=== PATIENT | male | born 1970 | race Caucasian/White ===

== ENCOUNTER 2019-07-12 20:49 | Emergency (ER) | payer BC ==
[2019-07-12] MEDS ORDERED: DOXYcycline CAP(*) 100 MG PO ONE (21:18)
--- NOTE | 2019-07-12 21:21 | UC ---
Skin Complaint HPI - HPI Summary HPI Summary: tick in corner of right eye may have been attached for over 24 hours - History of Current Complaint Chief Complaint: UCEye Time Seen by Provider: 07/12/19 21:12 Stated Complaint: TICK CORNER OF RIGHT EYE Hx Obtained From: Patient Onset/Duration: Sudden Onset Timing: Constant Pain Intensity: 4 Pain Scale Used: 0-10 Numeric Location: Discrete - lateral cornor of right eye Aggravating Factor(s): Nothing Alleviating Factor(s): Nothing Associated Signs & Symptoms: Positive: Negative Related History: Insect Bite/Sting - Allergy/Home Medications Allergies/Adverse Reactions: Allergies Allergy/AdvReac Type Severity Reaction Status Date / Time No Known Allergies Allergy Verified 07/12/19 21:02 Home Medications: Home Medications Citalopram Hydrobromide [Citalopram HBr] 20 mg PO DAILY 07/12/19 [History Confirmed 07/12/19] PMH/Surg Hx/FS Hx/Imm Hx Previously Healthy: No - Lyme Psychological History: Anxiety - Surgical History Surgical History: Yes Surgery Procedure, Year, and Place: colon resection; ankle surgeries - Family History Known Family History: Positive: None - Social History Occupation: Employed Full-time Lives: With Family Alcohol Use: Occasionally Substance Use Type: None Smoking Status (MU): Light Every Day Tobacco Smoker Review of Systems All Other Systems Reviewed And Are Negative: Yes Constitutional: Positive: Negative Skin: Positive: Other - tick enbedded lateral corner of right eye Eyes: Positive: Negative ENT: Positive: Negative Respiratory: Positive: Negative Cardiovascular: Positive: Negative Gastrointestinal: Positive: Negative Genitourinary: Positive: Negative Motor: Positive: Negative Neurovascular: Positive: Negative Musculoskeletal: Positive: Negative Neurological: Positive: Negative Psychological: Positive: Negative Is Patient Immunocompromised?: No Physical Exam Triage Information Reviewed: Yes Appearance: Well-Appearing, No Pain Distress, Well-Nourished Vital Signs: Initial Vital Signs Temp 97.8 F 07/12/19 21:02 Pulse 62 07/12/19 21:02 Resp 16 07/12/19 21:02 BP 143/75 07/12/19 21:02 Pulse Ox 98 07/12/19 21:02 Vital Signs Reviewed: Yes Eye Exam: Normal Eyes: Positive: Other: - tick lateral cornor of right eye ENT Exam: Normal ENT: Positive: Normal ENT inspection, Hearing grossly normal. Negative: Trismus , Muffled voice, Hoarse voice Dental Exam: Normal Neck exam: Normal Neck: Positive: Supple, Nontender Respiratory Exam: Normal Respiratory: Positive: Chest non-tender, No respiratory distress, No accessory muscle use Cardiovascular Exam: Normal Cardiovascular: Positive: RRR, Pulses Normal, Brisk Capillary Refill Musculoskeletal Exam: Normal Musculoskeletal: Positive: Strength Intact, ROM Intact, No Edema Neurological Exam: Normal Neurological: Positive: Alert, Muscle Tone Normal Psychological Exam: Normal Skin Exam: Normal Course/Dx - Course Course Of Treatment: tick removed with tick twister intact---discussed options with treating with preventive dose of doxy. patient wishes to treat--will follow bp with pcp and chronic lyme with ID at [facility] 5 days - Diagnoses Provider Diagnosis: Tick bite, Hypertension Discharge ED - Sign-Out/Discharge Documenting (check all that apply): Patient Departure All imaging exams completed and their final reports reviewed: No Studies - Discharge Plan Condition: Stable Disposition: HOME Patient Education Materials: Lyme Disease (ED), Tick Bite (ED), Hypertension ( ED) Referrals: Vivien ANGELES,Zoya Harmon [Primary Care Provider] - 1 Week (bp recheck) - Billing Disposition and Condition Condition: STABLE Disposition: Home
== END 2019-07-12 21:27 | disposition home or self-care (01) ==
LOC: UCCORT 20:49
DX: S00.261A Insect bite (nonvenomous) of right eyelid and periocular area, initial encounter (principal); I10 Essential (primary) hypertension; F17.210 Nicotine dependence, cigarettes, uncomplicated; W57.XXXA Bitten or stung by nonvenomous insect and other nonvenomous arthropods, initial encounter; Y92.9 Unspecified place or not applicable
CPT/HCPCS: 99201; A9270-GY; G0463